=== PATIENT | male | born 1970 | race Caucasian/White ===

== ENCOUNTER 2022-11-17 16:29 | Emergency (ER) | payer OTHER ==
[2022-11-17] MEDS ORDERED: Sodium Chloride 0.9% 2.5 ML Syringe FLUSH PRN (16:40)
[2022-11-17] MEDS ORDERED: Sodium Chloride 0.9% 10 ML Syringe FLUSH PRN (16:40)
[2022-11-17 16:58] LABS: BASOPHILS ABSOLUTE AUTO 0.1 K/uL (0.0-0.1); BASOPHILS PERCENT AUTO 0.6 % (0.0-1.5); EOSINOPHILS ABSOLUTE AUTO 0.1 K/uL (0.0-0.7); EOSINOPHILS PERCENT AUTO 0.8 % (0.0-7.0); HEMATOCRIT 15.8 % (38.0-50.0); IMMATURE RETIC FRACTION 20 %; LYMPHOCYTES ABSOLUTE AUTO 2.1 K/uL (0.6-2.4); LYMPHOCYTES PERCENT AUTO 14.4 % (16.0-40.0); MEAN CORPUSCULAR HEMOGLOBIN 12.3 pg (27.0-32.0); MEAN CORPUSCULAR HGB CONC 23.4 g/dL (31.0-37.0); MEAN CORPUSCULAR VOLUME 52.5 fL (80.0-98.0); MONOCYTES ABSOLUTE AUTO 1.1 K/uL (0.0-0.8); MONOCYTES PERCENT AUTO 7.6 % (0.0-15.0); NEUTROPHILS PERCENT AUTO 76.6 % (48.0-80.0); NRBC ABSOLUTE 0 K/uL; NRBC PERCENT 1.9 /100WBC; RETICULOCYTE COUNT PERCENT 1.9 % (0.5-1.5); WHITE BLOOD CELL COUNT,WBC 14.36 K/uL (4.0-11.0)
[2022-11-17 16:59] LABS: INR 1.12 (0.86-1.11)
[2022-11-17 17:18] LABS: HEMOGLOBIN 3.7 g/dL (13.0-17.0)
[2022-11-17 17:21] LABS: PLATELET COUNT,PLT 1171 K/uL (150-400)
[2022-11-17 17:23] LABS: RED BLOOD CELL COUNT 3.01 M/uL (4.50-5.90)
[2022-11-17 17:26] LABS: PERCENT FE SATURATION 1.89 % (20-55)
[2022-11-17 17:42] LABS: ALBUMIN 3.9 g/dL (3.4-5.0); BILIRUBIN TOTAL 0.9 mg/dL (0.2-1.0); CALCIUM 8.9 mg/dL (8.5-10.1); CARBON DIOXIDE,CO2 21.6 mmol/L (21.0-32.0); CREATININE 1.4 mg/dL (0.8-1.3); EST CRCL DRUG DOSING (CG) 71.34 mL/min; POTASSIUM,K 4.4 mmol/L (3.5-5.1); PROTEIN TOTAL,TP 7.7 g/dL (6.4-8.2); TSH ULTRASENSITIVE 1.76 uIU/mL (0.36-3.74)
[2022-11-17] MEDS ORDERED: Iopamidol 755 MG/ML 500 ML Multipack Bottle IVPUSH ONE (18:07)
[2022-11-19 08:02] LABS: HYPOCHRO 3+ /hpf; MICRO 3+ /hpf; NEUTROPHILS% 78 % (41-71); OVALOCYTE 2+ /hpf
== END 2022-11-17 23:20 ==
LOC: MW.ED 16:29
DX: D64.9 Anemia, unspecified (principal); R11.2 Nausea with vomiting, unspecified; R10.9 Unspecified abdominal pain; I10 Essential (primary) hypertension; Z91.018 Allergy to other foods; Z91.011 Allergy to milk products
CPT/HCPCS: 36415; 36430; 71045; 74177; 80053; 82607; 82728; 82746; 83010; 83550; 83615; 83690; 83735; 84443; 84484; 85025; 85045; 85610; 85730; 86850; 86900; 86901; 86920; 93005; 99291; J3490; P9016; Q9967; 93010